=== PATIENT | female | born 1990 | race Caucasian/White ===

== ENCOUNTER 2020-06-06 15:44 | Emergency (ER) | payer OTHER ==
[2020-06-06 16:45] VITALS: BP 109/70; PULSE 75; RESP 20; TEMP 99
[2020-06-06] MEDS ORDERED: HYDROcodone/APAP 7.5-325MG 1 EACH TAB PO ONE (17:07)
[2020-06-06] MEDS ORDERED: predniSONE 50 MG TAB PO STA (17:07)
[2020-06-06] MEDS ORDERED: ACET/COD 300 MG/30 MG STARTER PACK 6 TAB BTL PO STA (17:07)
[2020-06-06] MEDS ORDERED: KETOROLAC 15 MG/ML 1 ML VIAL IM STA (17:07)
--- NOTE | 2020-06-06 17:51 | XR ---
EXAMINATION TYPE: XR lumbar spine 2 or 3V DATE OF EXAM: 06/06/2020 COMPARISON: NONE HISTORY: Back pain TECHNIQUE: 3 views FINDINGS: Lumbar vertebra have normal spacing and alignment. Posterior elements are intact. Sacroilia c joints appear normal. IMPRESSION: Normal lumbar spine exam.
--- NOTE | 2020-06-06 18:00 | ED ---
Back Pain HPI - General Chief Complaint: Back Pain/Injury Stated Complaint: Back Pain Time Seen by Provider: 06/06/20 16:51 Source: patient Limitations: no limitations - History of Present Illness Initial Comments: 30yo female prsenting for low back pain, patient states this morning she bent over to clean the toilet when she had sudden onset of low back pain. Patient states that it hurt when she moved or took a step. Patient states that this seemed to get a little bit better she was walking the kitchen and then it came on again. Patient states she fell secondary to the pain. She denies leg weakness but states that the pain increases with movement of the right leg. She denies any sensation deficits loss of bowel bladder control urinary retention. She denies IV drug use history of cancer or fevers. Patient denies injury to the head or neck when she fell. Patient appears nontoxic on arrival afebrile. - Related Data Home Medications Medication Instructions Recorded Confirmed Albuterol Inhaler (Mhu) [Ventolin 1 - 2 puff INHALATION RT-Q6H PRN 01/19/19 11/16/19 Hfa Inhaler] Previous Rx's Medication Instructions Recorded predniSONE 50 mg PO DAILY 4 Days #4 tab 06/06/20 Allergies Allergy/AdvReac Type Severity Reaction Status Date / Time Sulfa (Sulfonamide Allergy Itching Verified 06/06/20 16:45 Antibiotics) Review of Systems ROS Statement: Those systems with pertinent positive or pertinent negative responses have been documented in the HPI. ROS Other: All systems not noted in ROS Statement are negative. Past Medical History Past Medical History: Asthma History of Any Multi-Drug Resistant Organisms: None Reported Past Surgical History: Tonsillectomy, Tubal Ligation Past Psychological History: No Psychological Hx Reported Smoking Status: Never smoker Past Alcohol Use History: Occasional Past Drug Use History: None Reported General Exam - General Exam Comments Initial Comments: General: The patient is awake and alert, in no distress Eye: +3 mm pupils are equal, round and reactive to light, extra-ocular movements are intact. No nystagmus. There is normal conjunctiva bilaterally. No signs of icterus. Ears, nose, mouth and throat: There are moist mucous membranes and no oral lesions. Neck: The neck is supple, there is no tenderness or JVD. Cardiovascular: There is a regular rate and rhythm. No murmur, rub or gallop is appreciated. Respiratory: Lungs are clear to auscultation, respirations are non-labored, breath sounds are equal. No wheezes, stridor, rales, or rhonchi. Gastrointestinal: Soft, non-distended, non-tender abdomen without masses or organomegaly noted. There is no rebound or guarding present. Musculoskeletal: Inspection of the back. Patient has midline tenderness to palpation of the lumbar spine. Positive right-sided straight leg raise. Normal strength of the legs bilaterally patient can weight-bear and ambulate with discomfort. Patient has normal sensation of the lower extremity bilaterally including the saddle region. +2 out of 5 detail reflexes of the patellar and Achilles bilaterally they appear equal. No myoclonus fasciculations or hyporeflexia Radial and DP pulses equal bilaterally 2+. Neurological: A&O x 3. CN II-XII intact grossly, There are no obvious motor or sensory deficits. Coordination appears grossly intact. Speech is normal. Skin: Skin is warm and dry and no rashes or lesions are noted. Psychiatric: Cooperative, appropriate mood & affect, normal judgment. Limitations: no limitations Course Vital Signs 06/06/20 16:42 Temperature 99.0 F Pulse Rate 75 Respiratory 20 Rate Blood Pressure 109/70 O2 Sat by Pulse 99 Oximetry Medical Decision Making - Medical Decision Making 30-year-old feel presenting today for chief complaint of low back pain after bending over or suspect disc herniation. Patient did fall x-ray no osseous injury. Patient has no history provided or physical exam findings concerning for cauda equina. Patient was educated on symptoms back treatment for suspected disc herniation she'll be prescribed prednisone, and is to follow-up with orthopedic spine and primary care provider. Return pressure discussed at length the patient. I discussed case with attending provider Dr. Lopez in detail who is agreeable to care plan and discharged Disposition Clinical Impression: Low back pain Disposition: HOME SELF-CARE Condition: Good Instructions (If sedation given, give patient instructions): Lumbar Disc Herniation (ED) Additional Instructions: Please use medication as discussed. Please follow-up with family doctor in the next 2 days, recommend orthopedic spine follow-up. Please return to emergency room if the symptoms increase or worsen or for any other concerns. Prescriptions: predniSONE 50 mg PO DAILY 4 Days #4 tab Is patient prescribed a controlled substance at d/c from ED?: No Referrals: Laila Wolf MD [Primary Care Provider] - 1-2 days Blaine Rai DO [Doctor of Osteopathic Medicine] - 1-2 days Time of Disposition: 18:00
== END 2020-06-06 18:14 | disposition home or self-care (01) ==
LOC: EC 15:44
DX: M54.5 Low back pain (principal); J45.909 Unspecified asthma, uncomplicated; Z88.2 Allergy status to sulfonamides; X50.1XXA Overexertion from prolonged static or awkward postures, initial encounter; Y93.E1 Activity, personal bathing and showering
CPT/HCPCS: 72100; 99283; 96372; J1885; J7512

== ENCOUNTER → 2020-09-11 | Outpatient (CLI) | payer OTHER ==
--- NOTE | 2020-09-11 16:35 | US ---
EXAMINATION TYPE: US pelvic complete DATE OF EXAM: 09/11/2020 COMPARISON: NONE CLINICAL HISTORY: 30-year-old female R10.2 left-sided pelvic pain. TECHNIQUE: Transabdominal (TA). Date of LMP: 08/28/2020, FINDINGS: EXAM MEASUREMENTS: Uterus: 8.4 x 4.5 x 3.8 cm Endometrial Stripe: 0.2 cm Right Ovary: 3.0 x 2.1 x 1.7 cm Left Ovary: 3.5 x 2.0 x 1.8 cm 1. Uterus: Anteverted with Slightly heterogenous myometrium. 2. Endometrium: wnl 3. Right Ovary: follicles seen 4. Left Ovary: follicles seen 5. Bilateral Adnexa: wnl 6. Posterior cul-de-sac: no free fluid IMPRESSION: Slightly heterogeneous myometrium may be technical. It may also be seen with diffuse small fibroid ch tonny. Follicular change in both ovaries. No specific abnormality seen.
== END | disposition home or self-care (01) ==
LOC: RADUSWWP 13:01
PROVIDERS: ATTEND Obstetrics & Gynecology
DX: R93.89 Abnormal findings on diagnostic imaging of other specified body structures (principal); R10.2 Pelvic and perineal pain
CPT/HCPCS: 76856

== ENCOUNTER → 2022-04-29 | Outpatient (CLI) | payer OTHER ==
--- NOTE | 2022-04-29 10:11 | MM ---
Reason for Exam: Clinical finding. Baseline mammogram. Indicated Problems: Pain of the right side (Global) for 2 Month(s). Patient History: Menarche at age 10. First Full-Term at age 20. Mother (yasmin) had breast cancer, right, age 52. Last menstrual period: 04/26/2022 Prior Study Comparison: Patient's first Mammogram. Tissue Density: There are scattered fibroglandular densities. Findings: Analyzed By CAD. No suspicious mass calcification or distortion to correlate with patient's pain.. Overall Assessment: Negative, BI-RAD 1 Management: Screening Mammogram of both breasts at age 40. A clinical breast exam by your physician is recommended on an annual basis and results should be correlated with mammographic findings. This exam should not preclude additional follow-up of suspicious palpable abnormalities. Results were given to the patient verbally at the time of exam. Clinical Management in 1 year. Electronically signed and approved by: Juan Pablo Garcia DO
--- NOTE | 2022-04-29 10:40 | USB ---
Patient History: Menarche at age 10. First Full-Term at age 20. Mother (yasmin) had breast cancer, right, age 52. Technique: Method: Whole Breast Handheld. Findings: The whole breast of the right breast, the axilla of the right breast and the retroareolar of the right breast were scanned. A complete US of all four quadrants of the breast and retro-areolar region were reviewed. No solid or cystic masses are identified. Overall Assessment: Negative, BI-RAD 1 Management: Screening Mammogram of both breasts at age 40. A clinical breast exam by your physician is recommended on an annual basis and results should be correlated with mammographic findings. Electronically signed and approved by: Juan Pablo Garcia DO
== END | disposition home or self-care (01) ==
LOC: RADMAMWWP 09:09
PROVIDERS: ATTEND Family Medicine
DX: R92.8 Other abnormal and inconclusive findings on diagnostic imaging of breast (principal); Z80.3 Family history of malignant neoplasm of breast
CPT/HCPCS: 77066

== ENCOUNTER → 2024-06-18 | Outpatient (CLI) | payer BC ==
--- NOTE | 2024-06-18 13:12 | XR ---
EXAMINATION TYPE: XR Hip Complete RT DATE OF EXAM: 06/18/2024 1:08 PM COMPARISON: None. CLINICAL INDICATION: Female, 34 years old with history of M47.816 LUMBAR;M54.41 SCIATICA;M25.551 PAIN RT HIP, pain TECHNIQUE: XR Hip Complete RT XX views were obtained. FINDINGS: There is no acute fracture/dislocation evident. The joint space appears within normal limits. The o verlying soft tissue appears unremarkable. IMPRESSION: No acute fracture or dislocation. [facility], , 06/18/2024 1:10 PM
--- NOTE | 2024-06-18 13:16 | XR ---
EXAMINATION TYPE: XR femur RT DATE OF EXAM: 06/18/2024 1:08 PM COMPARISON: None. CLINICAL INDICATION: Female, 34 years old with history of M47.816 LUMBAR;M54.41 SCIATICA;M25.551 PAIN RT HIP, pain TECHNIQUE: XR femur RT XX views were obtained. FINDINGS: There is no acute fracture or dislocation seen of the femur. The hip and knee joints phill ear within normal limits. The overlying soft tissue appears unremarkable. IMPRESSION: There is no acute fracture or dislocation seen of the femur. [facility], , 06/18/2024 1:13 PM
== END | disposition home or self-care (01) ==
LOC: RADXRMAIN 12:39
PROVIDERS: ATTEND Family Medicine
DX: M47.816 Spondylosis without myelopathy or radiculopathy, lumbar region (principal); M54.41 Lumbago with sciatica, right side; M25.551 Pain in right hip
CPT/HCPCS: 73502

== ENCOUNTER → 2024-09-21 | Outpatient (CLI) | payer BC ==
--- NOTE | 2024-09-21 15:59 | CT ---
EXAMINATION TYPE: CT abdomen wo con DATE OF EXAM: 09/21/2024 COMPARISON: None CLINICAL INDICATION: Female, 34 years old with history of R10.32 R10.9 R10.84; PHH, left sided abdomi nal pain TECHNIQUE: CT of the abdomen performed with oral but without IV contrast. CT DLP: 479.[address] CTDI: mGy Automated exposure control for dose reduction was used. FINDINGS: The lungs are clear. Gallbladder is normal and there is no gallstone, wall thickening, pericholecystic fluid or distention . There is no biliary ductal dilatation. There is no organomegaly of the liver, pancreas, spleen or adrenal glands. There is mild to moderate left hydronephrosis secondary to a 6 to 7 mm obstructing renal calculus in the proximal to mid left ureter at roughly the level of L3-4.. There is no right renal calculus or hy dronephrosis. The caliber of the abdominal aorta is normal and there is no retroperitoneal adenopathy or hemorrhage . The bowel loops are normal in caliber is no evidence of obstruction. No inflammatory changes are iden tified in the mesentery and there is no free intraperitoneal air or fluid.. The osseous structures and soft tissues are unremarkable. IMPRESSION: Mild to moderate left hydronephrosis secondary to a 6 to 7 mm obstructing calculus in the proximal to mid left ureter. No other significant abnormalities seen within the abdomen. [facility], , 09/21/2024 3:57 PM
== END | disposition home or self-care (01) ==
LOC: RADCTMAIN 14:09
PROVIDERS: ATTEND Family Medicine
DX: N13.2 Hydronephrosis with renal and ureteral calculous obstruction (principal)
CPT/HCPCS: 74150

== ENCOUNTER 2024-09-25 08:45 | Observation (INO) | payer BC ==
--- NOTE | 2024-09-25 09:00 | ED ---
Abdominal Pain HPI - General Chief Complaint: Abdominal Pain Stated Complaint: kidney stone Time Seen by Provider: 09/25/24 08:50 Source: patient, RN notes reviewed Mode of arrival: ambulatory Limitations: no limitations - History of Present Illness Initial Comments: This is a 34-year-old female who presents to the emergency department for a kidney stone. States that on 09/16 she started experiencing left-sided flank pain. She got an appointment with her primary care provider on 09/21 and had an outpatient CT scan demonstrating a stone in the left ureter. She was started on ciprofloxacin, Flomax, and Toradol. She has been taking these medications as prescribed, but states that her pain is not getting any better and she is now having difficulty urinating. She has a history of kidney stones, but states that she is always able to pass them within a couple of hours, they have never lasted for this long. Denies any nausea or vomiting. States that the pain is also now starting to travel to the right side as well. - Related Data Home Medications Medication Instructions Recorded Confirmed Ciprofloxacin HCl [Cipro] 250 mg PO BID 09/25/24 09/25/24 Ibuprofen [Motrin] 800 mg PO Q8H PRN 09/25/24 09/25/24 Metaxalone [Skelaxin] 800 mg PO TID PRN 09/25/24 09/25/24 Tamsulosin [Flomax] 0.4 mg PO DAILY 09/25/24 09/25/24 Allergies Allergy/AdvReac Type Severity Reaction Status Date / Time Sulfa (Sulfonamide Allergy Itching Verified 09/25/24 11:53 Antibiotics) Review of Systems ROS Statement: Those systems with pertinent positive or pertinent negative responses have been documented in the HPI. ROS Other: All systems not noted in ROS Statement are negative. Past Medical History Past Medical History: Asthma History of Any Multi-Drug Resistant Organisms: None Reported Past Surgical History: Tonsillectomy, Tubal Ligation Past Psychological History: No Psychological Hx Reported Smoking Status: Never smoker Past Alcohol Use History: Occasional Past Drug Use History: None Reported General Exam Limitations: no limitations General appearance: alert, in distress Head exam: Present: atraumatic, normocephalic, normal inspection Respiratory exam: Present: normal lung sounds bilaterally. Absent: respiratory distress, wheezes, rales, rhonchi, stridor Cardiovascular Exam: Present: regular rate, normal rhythm GI/Abdominal exam: Present: soft, tenderness (Left mid to lower abdomen), normal bowel sounds. Absent: distended Back exam: Present: CVA tenderness (L). Absent: CVA tenderness (R) Neurological exam: Present: alert, oriented X3, CN II-XII intact Psychiatric exam: Present: normal affect, normal mood Skin exam: Present: warm, dry, intact, normal color. Absent: rash Course Vital Signs 09/25/24 08:46 Temperature 97.7 F Pulse Rate 94 Respiratory 18 Rate Blood Pressure 144/91 O2 Sat by Pulse 97 Oximetry Medical Decision Making - Medical Decision Making This is a 34-year-old female who presents to the emergency department for left flank pain. Was pt. sent in by a medical professional or institution? @ -No Did you speak to anyone other than the patient for history? @ -No Did you review nursing and triage notes? @ -Yes, and I agree, it is accurate with regards to the patient's symptoms. Were old charts reviewed? @ -CT scan of the abdomen from 09/21/2024 demonstrating mild to moderate left hydronephrosis secondary to a 6 to 7 mm obstructing calculus in the proximal to mid left ureter. Differential Diagnosis? @ -Differential Flank Pain: UTI, pyelonephritis, kidney stone, musculoskeletal, pancreatitis, cholecystitis, this is not meant to be an all-inclusive list. EKG interpreted by me (3pts min.)? @ -Not obtained X-rays interpreted by me (1pt min.)? @ -KUB x-ray obtained. My interpretation identifies a left ureteral calculus. CT interpreted by me (1pt min.)? @ -Not obtained U/S interpreted by me (1pt. min.)? @ -Not obtained What testing was considered but not performed? (CT, X-rays, U/S, labs)? Why? @ -None What meds were considered but not given? Why? @ -None Did you discuss the management of the patient with other professionals? @ -Yes, Dr. Cordova, urology, who is agreeable to admission and advised keeping the patient n.p.o. after midnight. Dr. Yeager accepts the patient for admission to medicine. Did you reconcile home meds? @ -No Was smoking cessation discussed for >3mins.? @ -No Was critical care preformed (if so, how long)? @ -No Were there social determinants of health that impacted care today? How? (Homelessness, low income, unemployed, alcoholism, drug addiction, transportation, low edu. Level, literacy, decrease access to med. care, shelter, rehab)? @ -No Was there de-escalation of care discussed even if they declined? (Discuss DNR or withdrawal of care, Hospice)? @ -No What co-morbidities impacted this encounter? (DM, HTN, Smoking, COPD, CAD, Cancer, CVA, Hep., AIDS, mental health diagnosis, sleep apnea, morbid obesity)? @ -None Was patient admitted / discharged? @ -Admitted. Lab work demonstrates mild leukocytosis of 11.3 and is otherwise unremarkable. Patient had a CT scan of the abdomen on 09/21 demonstrating a 6 to 7 mm obstructing calculus in the proximal to mid left ureter. KUB x-ray here demonstrates a 5 mm calculus in the left mid ureter that has minimally progressed compared with the CT scan. Urinalysis continues to demonstrate blood with occasional bacteria. Urine sent for culture. Patient's pain was still fairly difficult to control. Case discussed with urology who was agreeable to patient being admitted for pain control. He advised keeping her n.p.o. at midnight for further intervention tomorrow. Patient admitted to medicine for the left ureteral calculus with hydronephrosis and intractable pain. Urology listed as consult. 1g of ceftriaxone administered for any potential infectious component based on the bacteria present. Case discussed with ED attending Dr. Brunner. Undiagnosed new problem with uncertain prognosis? @ -None Drug Therapy requiring intensive monitoring for toxicity (Heparin, Nitro, Insulin, Cardizem)? @ -None Were any procedures done? @ -None Diagnosis/symptom? @ -Left ureteral calculus, hydronephrosis, intractable pain Acute, or Chronic, or Acute on Chronic? @ -Acute Uncomplicated (without systemic symptoms) or Complicated (systemic symptoms)? @ -Complicated Side effects of treatment? @ -None Exacerbation, Progression, or Severe Exacerbation] @ -Not applicable Poses a threat to life or bodily function? @ -Yes, the pain is limiting her ability to function - Lab Data Result diagrams: 09/25/24 09:21 09/25/24 09:21 Lab Results 09/25/24 09/25/24 09/25/24 Range/Units 09:21 09:21 09:21 WBC 11.3 H (3.8-10.6) k/uL RBC 4.48 (3.80-5.40) m/uL Hgb 12.5 (11.4-16.0) gm/dL Hct 39.2 (34.0-46.0) % MCV 87.4 (80.0-100.0) fL MCH 27.9 (25.0-35.0) pg MCHC 31.9 (31.0-37.0) g/dL RDW 12.9 (11.5-15.5) % Plt Count 325 (150-450) k/uL MPV 7.2 Neutrophils % 72 % Lymphocytes % 18 % Monocytes % 5 % Eosinophils % 4 % Basophils % 0 % Neutrophils # 8.1 H (1.3-7.7) k/uL Lymphocytes # 2.0 (1.0-4.8) k/uL Monocytes # 0.6 (0-1.0) k/uL Eosinophils # 0.4 (0-0.7) k/uL Basophils # 0.0 (0-0.2) k/uL Sodium 136 L (137-145) mmol/L Potassium 4.2 (3.5-5.1) mmol/L Chloride 102 (98-107) mmol/L Carbon Dioxide 28 (22-30) mmol/L Anion Gap 6 mmol/L BUN 11 (7-17) mg/dL Creatinine 0.96 (0.52-1.04) mg/dL Est GFR (CKD-EPI)AfAm 89 (>60 ml/min/1.73 sqM) Est GFR (CKD-EPI)NonAf 78 (>60 ml/min/1.73 sqM) Glucose 92 (74-99) mg/dL Plasma Lactic Acid Esteban 1.1 (0.7-2.0) mmol/L Calcium 8.7 (8.4-10.2) mg/dL Total Bilirubin 0.7 (0.2-1.3) mg/dL AST 19 (14-36) U/L ALT 15 (4-34) U/L Alkaline Phosphatase 72 (38-126) U/L Total Protein 6.6 (6.3-8.2) g/dL Albumin 4.0 (3.5-5.0) g/dL Lipase 104 (23-300) U/L HCG, Qual Not Detected Urine Color Urine Appearance (Clear) Urine pH (5.0-8.0) Ur Specific [place] (1.001-1.035) Urine Protein (Negative) Urine Glucose (UA) (Negative) Urine Ketones (Negative) Urine Blood (Negative) Urine Nitrite (Negative) Urine Bilirubin (Negative) Urine Urobilinogen (<2.0) mg/dL Ur Leukocyte Esterase (Negative) Urine RBC (0-5) /hpf Urine WBC (0-5) /hpf Ur Squamous Epith Cells (0-4) /hpf Urine Bacteria (None) /hpf Hyaline Casts (0-2) /lpf Urine Mucus (None) /hpf 09/25/24 Range/Units 11:21 WBC (3.8-10.6) k/uL RBC (3.80-5.40) m/uL Hgb (11.4-16.0) gm/dL Hct (34.0-46.0) % MCV (80.0-100.0) fL MCH (25.0-35.0) pg MCHC (31.0-37.0) g/dL RDW (11.5-15.5) % Plt Count (150-450) k/uL MPV Neutrophils % % Lymphocytes % % Monocytes % % Eosinophils % % Basophils % % Neutrophils # (1.3-7.7) k/uL Lymphocytes # (1.0-4.8) k/uL Monocytes # (0-1.0) k/uL Eosinophils # (0-0.7) k/uL Basophils # (0-0.2) k/uL Sodium (137-145) mmol/L Potassium (3.5-5.1) mmol/L Chloride (98-107) mmol/L Carbon Dioxide (22-30) mmol/L Anion Gap mmol/L BUN (7-17) mg/dL Creatinine (0.52-1.04) mg/dL Est GFR (CKD-EPI)AfAm (>60 ml/min/1.73 sqM) Est GFR (CKD-EPI)NonAf (>60 ml/min/1.73 sqM) Glucose (74-99) mg/dL Plasma Lactic Acid Esteban (0.7-2.0) mmol/L Calcium (8.4-10.2) mg/dL Total Bilirubin (0.2-1.3) mg/dL AST (14-36) U/L ALT (4-34) U/L Alkaline Phosphatase (38-126) U/L Total Protein (6.3-8.2) g/dL Albumin (3.5-5.0) g/dL Lipase (23-300) U/L HCG, Qual Urine Color Yellow Urine Appearance Clear (Clear) Urine pH 6.5 (5.0-8.0) Ur Specific [place] 1.015 (1.001-1.035) Urine Protein Negative (Negative) Urine Glucose (UA) Negative (Negative) Urine Ketones Negative (Negative) Urine Blood Moderate H (Negative) Urine Nitrite Negative (Negative) Urine Bilirubin Negative (Negative) Urine Urobilinogen <2.0 (<2.0) mg/dL Ur Leukocyte Esterase Negative (Negative) Urine RBC 101 H (0-5) /hpf Urine WBC 4 (0-5) /hpf Ur Squamous Epith Cells 2 (0-4) /hpf Urine Bacteria Occasional H (None) /hpf Hyaline Casts 1 (0-2) /lpf Urine Mucus Occasional H (None) /hpf - Radiology Data Radiology results: report reviewed, image reviewed Disposition Clinical Impression: Left ureteral calculus, Intractable pain, Hydronephrosis Disposition: ADMITTED IP TO THIS HOSP
[2024-09-25] MEDS: SODIUM CHLORIDE 0.9% 1,000 ML IV STA ×2 (09:10→11:58)
[2024-09-25] MEDS: KETOROLAC 15 MG/ML 1 ML VIAL IVP STA ×2 (09:11→10:53)
[2024-09-25] MEDS: ONDANSETRON 4 MG/2 ML VIAL IVP STA (09:12)
[2024-09-25] MEDS: HYDROmorphone 1 MG/ML 1 ML SYRINGE IVP STA ×2 (09:17→14:42)
[2024-09-25 09:35] LABS: Basophils % (A) 0 %; Eosinophils # (A) 0.4 k/uL (0-0.7); Eosinophils % (A) 4 %; HCT 39.2 % (34.0-46.0); HGB 12.5 gm/dL (11.4-16.0); Lymphocytes % (A) 18 %; MCH 27.9 pg (25.0-35.0); MCHC 31.9 g/dL (31.0-37.0); MCV 87.4 fL (80.0-100.0); Mean Platelet Volume 7.2; Monocytes # (A) 0.6 k/uL (0-1.0); Monocytes % (A) 5 %; Neutrophils # (A) 8.1 k/uL (1.3-7.7); Neutrophils % (A) 72 %; Platelet Count 325 k/uL (150-450); RBC 4.48 m/uL (3.80-5.40); RDW 12.9 % (11.5-15.5); WBC 11.3 k/uL (3.8-10.6)
[2024-09-25 09:43] LABS: HCG,Qualitative Serum Not Detected
[2024-09-25 09:45] LABS: ALT 15 U/L (4-34); AST 19 U/L (14-36); African American GFR (CKD) 89 (>60 ml/min/1.73 sqM); Alkaline Phosphatase 72 U/L (38-126); Anion Gap 6 mmol/L; Blood Urea Nitrogen 11 mg/dL (7-17); Calcium 8.7 mg/dL (8.4-10.2); Carbon Dioxide 28 mmol/L (22-30); Chloride 102 mmol/L (98-107); Glucose 92 mg/dL (74-99); Lipase 104 U/L (23-300); Non-African American GFR(CKD) 78 (>60 ml/min/1.73 sqM); Potassium 4.2 mmol/L (3.5-5.1); Sodium 136 mmol/L (137-145); Total Bilirubin 0.7 mg/dL (0.2-1.3); Total Protein 6.6 g/dL (6.3-8.2)
--- NOTE | 2024-09-25 09:47 | XR ---
EXAMINATION TYPE: XR KUB DATE OF EXAM: 09/25/2024 COMPARISON: CT abdomen 09/21/2024 HISTORY: Pain TECHNIQUE: Single upright KUB image of the abdomen is obtained FINDINGS: Small bowel demonstrates no evidence for dilatation or air fluid levels. Gas and fecal material is seen in non-distended colon. No convincing evidence for pneumoperitoneum. 5 mm calculus within the left mid ureter at the level of the L4-L5 vertebral bodies. Previously at th e level of the L3-L4 vertebral bodies. There are 2 tubal ligation clips within the right pelvis. The lung bases are clear. The osseous structures are intact. IMPRESSION: Minimal progression of left ureteral calculus from prior CT 09/21/2024. [facility], , 09/25/2024 9:45 AM
[2024-09-25] MEDS: PROCHLORPERAZINE INJ 10 MG/2 ML VIAL IVP STA (10:54)
[2024-09-25 11:42] LABS: Appearance,Urine Clear (Clear); Bacteria,Urine Occasional /hpf; Bilirubin,Urine Negative (Negative); Blood,Urine Moderate (Negative); Color,Urine Yellow; Glucose,Urine (UA) Negative (Negative); Hyaline Casts,Urine 1 /lpf (0-2); Ketones,Urine Negative (Negative); Leukocyte Esterase,Urine Negative (Negative); Mucus,Urine Occasional /hpf; Nitrite,Urine Negative (Negative); PH, Urine 6.5 (5.0-8.0); Protein,Urine Negative (Negative); RBC,Urine 101 /hpf (0-5); Specific Gravity,Urine 1.015 (1.001-1.035); Squamous Epithelial Cell,Urine 2 /hpf (0-4); Urobilinogen,Urine <2.0 mg/dL (<2.0); WBC,Urine 4 /hpf (0-5)
[2024-09-25] MEDS: cefTRIAXone IN SWFI 1,000 MG/10 ML SYRINGE IVP STA (11:58)
[2024-09-25] MEDS ORDERED: ONDANSETRON 4 MG/2 ML VIAL IVP PRN (12:02)
[2024-09-25] MEDS ORDERED: NALOXONE 0.4 MG/ML 1 ML VIAL IV PRN (12:02)
[2024-09-25] MEDS ORDERED: HYDROmorphone 1 MG/ML 1 ML SYRINGE IVP PRN (12:02)
[2024-09-25] MEDS ORDERED: ACETAMINOPHEN TAB 325 MG TAB PO PRN (12:02)
--- NOTE | 2024-09-25 12:40 | P.GSCN ---
History of Present Illness Consult date: 09/25/24 Reason for Consult: Left ureteral stone History of present illness: This is a 34-year-old female presents to the hospital with intractable left flank pain associated with nausea. She indicated pain has been ongoing for 2 weeks without much improvement. She had a CT scan done on September 21 which showed evidence of a 6 mm left-sided proximal stone, a follow-up KUB was done today which showed no progression of the stone. In the evaluation in the ER she continues to have left flank pain. Denies any fevers, chills dysuria or gross hematuria. She does have a history of recurrent kidney stones but is always been able to pass them spontaneously. No known family history of kidney stones. Review of Systems - Constitutional Denies fever, Denies weight loss - EENT Ears, nose, mouth and throat: Denies dysphagia - Cardiovascular Denies chest pain, Denies shortness of breath - Respiratory Denies cough, Denies 7 - Gastrointestinal Reports abdominal pain, Reports nausea, Reports vomiting - Genitourinary Genitourinary: Reports flank pain Past Medical History Past Medical History: Asthma History of Any Multi-Drug Resistant Organisms: None Reported Past Surgical History: Tonsillectomy, Tubal Ligation Past Psychological History: No Psychological Hx Reported Smoking Status: Never smoker Past Alcohol Use History: Occasional Past Drug Use History: None Reported Medications and Allergies Home Medications Medication Instructions Recorded Confirmed Type Ciprofloxacin HCl [Cipro] 250 mg PO BID 09/25/24 09/25/24 History Ibuprofen [Motrin] 800 mg PO Q8H PRN 09/25/24 09/25/24 History Metaxalone [Skelaxin] 800 mg PO TID PRN 09/25/24 09/25/24 History Tamsulosin [Flomax] 0.4 mg PO DAILY 09/25/24 09/25/24 History Allergies Allergy/AdvReac Type Severity Reaction Status Date / Time Sulfa (Sulfonamide Allergy Itching Verified 09/25/24 11:53 Antibiotics) Surgical - Exam Vital Signs Temp Pulse Resp BP Pulse Ox 97.7 F 94 18 144/91 97 09/25/24 08:46 09/25/24 08:46 09/25/24 08:46 09/25/24 08:46 09/25/24 08:46 - General no distress, severe pain - Eyes normal ocular movement, no pale - ENT normal nares, normal mucosa - Respiratory normal expansion, normal respiratory effort - Abdomen Abdomen: soft, tender - Psychiatric oriented to time, oriented to person, oriented to place Results - Labs 09/25/24 09:21 09/25/24 09:21 Abnormal Lab Results - Last 24 Hours (Table) 09/25/24 09/25/24 09/25/24 Range/Units 09:21 09:21 11:21 WBC 11.3 H (3.8-10.6) k/uL Neutrophils # 8.1 H (1.3-7.7) k/uL Sodium 136 L (137-145) mmol/L Urine Blood Moderate H (Negative) Urine RBC 101 H (0-5) /hpf Urine Bacteria Occasional H (None) /hpf Urine Mucus Occasional H (None) /hpf Diabetes panel 09/25/24 Range/Units 09:21 Sodium 136 L (137-145) mmol/L Potassium 4.2 (3.5-5.1) mmol/L Chloride 102 (98-107) mmol/L Carbon Dioxide 28 (22-30) mmol/L BUN 11 (7-17) mg/dL Creatinine 0.96 (0.52-1.04) mg/dL Glucose 92 (74-99) mg/dL Calcium 8.7 (8.4-10.2) mg/dL AST 19 (14-36) U/L ALT 15 (4-34) U/L Alkaline Phosphatase 72 (38-126) U/L Total Protein 6.6 (6.3-8.2) g/dL Albumin 4.0 (3.5-5.0) g/dL Calcium panel 09/25/24 Range/Units 09:21 Calcium 8.7 (8.4-10.2) mg/dL Albumin 4.0 (3.5-5.0) g/dL Pituitary panel 09/25/24 Range/Units 09:21 Sodium 136 L (137-145) mmol/L Potassium 4.2 (3.5-5.1) mmol/L Chloride 102 (98-107) mmol/L Carbon Dioxide 28 (22-30) mmol/L BUN 11 (7-17) mg/dL Creatinine 0.96 (0.52-1.04) mg/dL Glucose 92 (74-99) mg/dL Calcium 8.7 (8.4-10.2) mg/dL Adrenal panel 09/25/24 Range/Units 09:21 Sodium 136 L (137-145) mmol/L Potassium 4.2 (3.5-5.1) mmol/L Chloride 102 (98-107) mmol/L Carbon Dioxide 28 (22-30) mmol/L BUN 11 (7-17) mg/dL Creatinine 0.96 (0.52-1.04) mg/dL Glucose 92 (74-99) mg/dL Calcium 8.7 (8.4-10.2) mg/dL Total Bilirubin 0.7 (0.2-1.3) mg/dL AST 19 (14-36) U/L ALT 15 (4-34) U/L Alkaline Phosphatase 72 (38-126) U/L Total Protein 6.6 (6.3-8.2) g/dL Albumin 4.0 (3.5-5.0) g/dL Assessment and Plan Assessment: This is a 34-year-old female with history of 6 mm left-sided proximal stone, is having intractable pain secondary to her stone. Discussed given the intractable pain and the failure of the stone to progress on KUB option of left-sided ureteroscopy with holmium laser was discussed. She is aware of the risk which include but not limited to bleeding, infection, injury to the ureter N.p.o. past midnight OR for left-sided ureteroscopy, holmium lithotripsy, stone basketing and stent insertion
--- NOTE | 2024-09-25 16:37 | P.HPIM ---
History of Present Illness H&P Date: 09/25/24 History of present illness: Intractable bilateral flank pain This is a 34-year-old female with past medical history significant for asthma who presented to ER with a complaint of intractable flank pain more pronounced on the left side. Patient stated that she was having bilateral flank pain going on for the 2 weeks without much improvement, patient had CT scan done on September 21 which showed 6 mm left-sided proximal stone. Patient denied any fever, chills, dysuria, urgency or frequency but patient noticed that she was having decreased urine output and bilateral flank pain Getting Worse, Was More Worse on the Left Side. Patient reported the left-sided flank pain got worse today and was so severe in intensity that she is advised to come to the ED. Patient is afebrile, heart rate 73, respiratory rate 16, blood pressure 131/87, saturating 98% on room air. WBCs 11.3, hemoglobin 12.5, platelet 325. CMP unremarkable. Beta-hCG negative. Lipase negative. UA suggestive of hematuria. KUB showed left ureteral calculus. Assessment and plan: Left ureteral calculus: Recurrent renal calculi: Presented with bilateral flank pain Imaging showed 6 mm left-sided proximal stone Pain controlTylenol, Toradol, Dilaudid. N.p.o. after midnight Urology consultedplan for left-sided ureteroscopy, lithotripsy, stone basketing and stent insertion 09/26. DVT prophylaxis SCD Monitor vital signs and labs Labs and medication were reviewed. Continue same treatment. Further recommendations as per clinical course of the patient PHYSICAL EXAMINATION: GENERAL: The patient is A&O x3, NAD HEENT: EOMI, Sclerae anicteric, Moist Mucous membranes Neck: Supple, Non tender, No JVD PULMONARY: Equal breath souds B/L, No wheezing, No crackles. CARDIOVASCULAR: S1, S2 present. No murmurs, rubs, or gallops. ABDOMEN: Soft, nontender, nondistended, normoactive bowel sounds. No guarding or rebound tenderness. MUSCULOSKELETAL: No edema, No cyanosis. No clubbing. Normal ROM. Intact peripheral pulses. NEUROLOGICAL: CN 2-12 grossly intact. No FND REVIEW OF SYSTEMS: CONSTITUTIONAL: No fever, no malaise, no fatigue. HEENT: No recent visual problems or hearing problems. Denied any sore throat. CARDIOVASCULAR: No chest pain, orthopnea, PND, no palpitations, no syncope. PULMONARY: No shortness of breath, no cough, no hemoptysis. GASTROINTESTINAL: No diarrhea, no nausea, no vomiting, no abdominal pain. NEUROLOGICAL: No headaches, no weakness, no numbness. HEMATOLOGICAL: Denies any bleeding or petechiae. GENITOURINARY: Denies any burning micturition, frequency, or urgency. MUSCULOSKELETAL/RHEUMATOLOGICAL: Denies any joint pain, swelling, or any muscle pain. ENDOCRINE: Denies any polyuria or polydipsia. The rest of the 14-point review of systems is negative. Dictation was produced using [employer] software. please excuse any grammatical, word or spelling errors. Past Medical History Past Medical History: Asthma Additional Past Medical History / Comment(s): Kidney stones History of Any Multi-Drug Resistant Organisms: None Reported Past Surgical History: Tonsillectomy, Tubal Ligation Past Psychological History: No Psychological Hx Reported Smoking Status: Never smoker Past Alcohol Use History: Occasional Past Drug Use History: None Reported Medications and Allergies Home Medications Medication Instructions Recorded Confirmed Type Ciprofloxacin HCl [Cipro] 250 mg PO BID 09/25/24 09/25/24 History Ibuprofen [Motrin] 800 mg PO Q8H PRN 09/25/24 09/25/24 History Metaxalone [Skelaxin] 800 mg PO TID PRN 09/25/24 09/25/24 History Tamsulosin [Flomax] 0.4 mg PO DAILY 09/25/24 09/25/24 History Allergies Allergy/AdvReac Type Severity Reaction Status Date / Time Sulfa (Sulfonamide Allergy Itching Verified 09/25/24 11:53 Antibiotics) Physical Exam Vitals: Vital Signs Temp Pulse Pulse Resp BP BP Pulse Ox 09/25/24 15:01 97.9 F 73 16 131/87 98 09/25/24 08:46 97.7 F 94 18 144/91 97 Intake and Output 09/25/24 09/25/24 09/25/24 06:59 14:59 22:59 Other: Voiding Method Toilet Weight 88.451 kg 88.451 kg Results CBC & Chem 7: 09/25/24 09:21 09/25/24 09:21 Labs: Abnormal Lab Results - Last 24 Hours (Table) 09/25/24 09/25/24 09/25/24 Range/Units 09:21 09:21 11:21 WBC 11.3 H (3.8-10.6) k/uL Neutrophils # 8.1 H (1.3-7.7) k/uL Sodium 136 L (137-145) mmol/L Urine Blood Moderate H (Negative) Urine RBC 101 H (0-5) /hpf Urine Bacteria Occasional H (None) /hpf Urine Mucus Occasional H (None) /hpf
[2024-09-25] MEDS: KETOROLAC 15 MG/ML 1 ML VIAL IVP PRN (21:02)
[2024-09-25] MEDS: HYDROmorphone 0.5 MG/0.5 ML SYRINGE IVP PRN (23:36)
[2024-09-26 07:52] VITALS: BP 127/81; PULSE 81; RESP 16; TEMP 98.7
[2024-09-26] MEDS: PANTOPRAZOLE 40 MG/10 ML VIAL IV SCH (09:12)
--- NOTE | 2024-09-26 10:02 | XR ---
EXAMINATION TYPE: XR KUB DATE OF EXAM: 09/26/2024 COMPARISON: KUB radiograph 09/25/2024, CT abdomen 09/21/2024 HISTORY: Left kidney stones. TECHNIQUE: Single supine KUB image of the abdomen is obtained FINDINGS: Small bowel demonstrates no evidence for dilatation or air fluid levels. Gas and fecal material is seen in non-distended colon. Contrast is demonstrated within the appendix from prior exam. A few descending colon diverticula containing contrast identified. Additional region s of contrast identified within the bowel within the right upper quadrant. No convincing evidence for pneumoperitoneum. Progression of 5 mm calculus now at the left ureterovesical junction. There are 2 tubal ligation clip s identified. The lung bases are clear. The osseous structures are intact. IMPRESSION: 1. Progression of left ureteral calculus now at the ureterovesical junction. 2. Colonic diverticulosis. [facility], , 09/26/2024 10:00 AM
--- NOTE | 2024-09-26 12:52 | P.PN ---
Subjective Progress Note Date: 09/26/24 Pain has improved this morning, denies any nausea or vomiting. Underwent repeat KUB which showed migration of the stone to the distal ureter now Objective - Vital Signs Vital signs: Vital Signs Temp 98.7 F 09/26/24 07:00 Pulse 81 09/26/24 07:00 Resp 16 09/26/24 07:00 BP 127/81 09/26/24 07:00 Pulse Ox 97 09/26/24 07:00 FiO2 Intake & Output 09/25/24 09/26/24 09/26/24 18:59 06:59 18:59 Weight 88.451 kg Other: Voiding Method Toilet Toilet Toilet # Voids 2 - Constitutional General appearance: Present: no acute distress - Gastrointestinal General gastrointestinal: Present: soft. Absent: distended, tenderness - Psychiatric Psychiatric: Present: A&O x's 3 - Labs CBC & Chem 7: 09/25/24 09:21 09/25/24 09:21 Assessment and Plan Assessment: 34-year-old female admitted to the hospital with a 6 mm left-sided proximal stone, and KUB the stone has progressed to the distal ureter now. Her pain has resolved, rediscussed with her option of medical expulsive therapy versus surgical removal of the stone. She prefers to attempt to pass the stone spontaneously Okay for discharge from urology standpoint, advised if pain persist as an outpatient to come back to the ER
--- NOTE | 2024-09-27 16:59 | P.DS ---
Providers Date of admission: 09/25/24 12:05 Attending physician: Larry Yeager MD Consults: 09/25/24 12:02 Consult Physician Urgent Consulting Provider: Yemi Cordova Consult Reason/Comments: Left ureteral calculus, hydronephrosis Do you want consulting provider notified?: Yes Primary care physician: Leia [facility] Course: Discharge diagnoses: Left ureteral calculus: Recurrent renal calculi: Presented with bilateral flank pain, imaging showed 6 mm left-sided proximal stone. Urology consulted. Repeat KUB showed progression of ureteral stone to UVP junction, okay to discharge per urology and outpatient follow-up. Symptoms resolved. Hospital course: This is a 34-year-old female with past medical history significant for asthma who presented to ER with a complaint of intractable flank pain more pronounced on the left side. Patient stated that she was having bilateral flank pain going on for the 2 weeks without much improvement, patient had CT scan done on September 21 which showed 6 mm left-sided proximal stone. Patient denied any fever, chills, dysuria, urgency or frequency but patient noticed that she was having decreased urine output and bilateral flank pain Getting Worse, Was More Worse on the Left Side. Patient reported the left-sided flank pain got worse today and was so severe in intensity that she is advised to come to the ED. Patient is afebrile, heart rate 73, respiratory rate 16, blood pressure 131/87, saturating 98% on room air. WBCs 11.3, hemoglobin 12.5, platelet 325. CMP unremarkable. Beta-hCG negative. Lipase negative. UA suggestive of hematuria. KUB showed left ureteral calculus. Patient was admitted to hospital for further evaluation and management. Urology consulted. Patient treated with IV fluids, pain medications for symptom control. Initiate urology plan for left-sided ureteroscopy lithotripsy and stone basketing and stent insertion, KUB next day showed left ureteral stone passed on to UVP junction. Okay to discharge per urology on outpatient follow- up. Patient's symptoms remain resolved. Follow-up with PCP in 1 week Follow-up with urology in 1 to 2 weeks. PHYSICAL EXAMINATION: GENERAL: The patient is A&O x3, NAD HEENT: EOMI, Sclerae anicteric, Moist Mucous membranes Neck: Supple, Non tender, No JVD PULMONARY: Equal breath souds B/L, No wheezing, No crackles. CARDIOVASCULAR: S1, S2 present. No murmurs, rubs, or gallops. ABDOMEN: Soft, nontender, nondistended, normoactive bowel sounds. No guarding or rebound tenderness. MUSCULOSKELETAL: No edema, No cyanosis. No clubbing. Normal ROM. Intact peripheral pulses. NEUROLOGICAL: CN 2-12 grossly intact. No FND SKIN: No rashes. Dictation was produced using [employer] dictation software. please excuse any grammatical, word or spelling errors. Patient Condition at Discharge: Fair Plan - Discharge Summary New Discharge Prescriptions: New Ketorolac [Toradol] 10 mg PO Q6HR PRN #10 tab PRN Reason: Pain Acetaminophen Tab [Tylenol] 650 mg PO Q6HR PRN #20 tab PRN Reason: Mild Pain Or Fever > 100.5 Continue Metaxalone [Skelaxin] 800 mg PO TID PRN PRN Reason: Muscle Spasm Tamsulosin [Flomax] 0.4 mg PO DAILY Ibuprofen [Motrin] 800 mg PO Q8H PRN PRN Reason: Pain Discontinued Ciprofloxacin HCl [Cipro] 250 mg PO BID Discharge Medication List Ibuprofen [Motrin] 800 mg PO Q8H PRN 09/25/24 [History] Metaxalone [Skelaxin] 800 mg PO TID PRN 09/25/24 [History] Tamsulosin [Flomax] 0.4 mg PO DAILY 09/25/24 [History] Acetaminophen Tab [Tylenol] 650 mg PO Q6HR PRN #20 tab 09/26/24 [Rx] Ketorolac [Toradol] 10 mg PO Q6HR PRN #10 tab 09/26/24 [Rx] Follow up Appointment(s)/Referral(s): Leia Regan MD [Primary Care Provider] - 1-2 days Patient Instructions/Handouts: Kidney Stones (DC) Discharge Disposition: HOME SELF-CARE
== END 2024-09-26 13:50 | disposition home or self-care (01) ==
LOC: EC 08:45 → 6NMEDSUR 12:05
PROVIDERS: ADMIT Internal Medicine; ATTEND Internal Medicine
DX: N13.2 Hydronephrosis with renal and ureteral calculous obstruction (principal); Z87.442 Personal history of urinary calculi; Z79.899 Other long term (current) drug therapy; Z88.2 Allergy status to sulfonamides
CPT/HCPCS: 96376 ×2; 96374 ×2; 96361; 96375; 99285; 51798; 36415; 80053; 83605; 83690; 85025; 81001; 84703; 87086; 74018 ×2; G0378 ×2; J0780; J2405; J0696; J1171 ×2; J1885